=== PATIENT | male | born 1980 | race Two or more races ===

== ENCOUNTER 2019-08-21 11:42 | Inpatient (IN) | payer MEDICAID, OTHER ==
[~2019-08-21] VITALS: Ht 175.3 cm; Wt 75.3 kg
[2019-08-21] MEDS ORDERED: QUET100T PO (12:01)
[2019-08-21] MEDS ORDERED: ACETAMINOPHEN 500 MG TABLET PO ONE (12:15)
[2019-08-21] MEDS ORDERED: HALOPERIDOL 5 MG TABLET PO ONE (12:15)
[2019-08-21 12:23] LABS: BASOPHILS % (AUTO) 0.5 % (0.0-2.0); EOSINOPHILS % (AUTO) 1.3 % (1.0-6.0); HEMATOCRIT 43.8 % (41-53); HEMOGLOBIN 14.8 g/dL (13.5-17.5); LYMPHOCYTES # (AUTO) 0.9 K/uL (1.0-4.8); MEAN CORPUSCULAR HEMOGLOBIN 29.6 pg (26.0-34.0); MEAN CORPUSCULAR HGB CONC 33.9 G/dL (31.0-37.0); MEAN CORPUSCULAR VOLUME 87 fL (80-100); MONOCYTES # (AUTO) 0.3 K/uL (0.1-1.0); MONOCYTES % (AUTO) 4.9 % (2.0-9.0); NEUTROPHILS # (AUTO) 5.2 K/uL (1.8-7.7); NEUTROPHILS % (AUTO) 79.3 % (40.0-70.0); PLATELET COUNT (AUTO) 260 K/uL (150-450); RED BLOOD CELL COUNT(AUTO) 5.02 MIL/uL (4.50-5.90); RED CELL DISTRIBUTION WIDTH 13.3 % (11.5-14.5)
[2019-08-21 12:26] LABS: APPEARANCE,URINE CLEAR (CLEAR); BILIRUBIN,URINE NEGATIVE (NEGATIVE); GLUCOSE, URINE (UA) NEGATIVE (NEGATIVE); KETONES,URINE NEGATIVE (NEGATIVE); LEUKOCYTE ESTERASE ,URINE TRACE (NEGATIVE); NITRATE,URINE NEGATIVE (NEGATIVE); OCCULT BLOOD,URINE NEGATIVE (NEGATIVE); PH,URINE 7.5 (5.0-8.0); PROTEIN,URINE NEGATIVE (NEGATIVE); UROBILINOGEN,URINE 0.2 mg/dL (<=1.0)
[2019-08-21 12:31] LABS: ANION GAP 6 mmol/L (8-16); CALCIUM, TOTAL 8.6 mg/dL (8.8-10.5); CARBON DIOXIDE 30 mmol/L (22-29); CHLORIDE 104 mmol/L (98-107); CREATININE 0.98 mg/dL (0.60-1.30); GLOMERULAR FILTR. RATE CALC > 60 mL/min (>60); GLUCOSE,RANDOM 108 mg/dL (70-110); POTASSIUM 4.3 mmol/L (3.5-5.1); SODIUM SERUM 140 mmol/L (136-145); UREA NITROGEN, BLOOD 8 mg/dL (7-18)
[2019-08-21 12:31] LABS: AMPHET/METH SCREEN,URINE NEGATIVE (NEGATIVE); BARBITURATE SCREEN, URINE NEGATIVE (NEGATIVE); BENZODIAZEPINES SCREEN,URINE NEGATIVE (NEGATIVE); CANNABINOID SCREEN,URINE NEGATIVE (NEGATIVE); COCAINE SCREEN,URINE NEGATIVE (NEGATIVE); METHADONE SCREEN, URINE NEGATIVE (NEGATIVE); OPIATE SCREEN,URINE NEGATIVE (NEGATIVE)
[2019-08-21 12:32] LABS: PHENCYCLIDINE SCREEN,URINE NEGATIVE (NEGATIVE)
[2019-08-21 12:34] LABS: ALBUMIN 4.1 g/dL (3.4-5.0); LIPASE 119 U/L (73-393)
[2019-08-21 12:52] LABS: ALANINE AMINOTRANSFERASE 20 U/L (12-78); ALKALINE PHOSPHATASE 67 U/L (46-116); ASPARTATE AMINOTRANSFERASE 19 U/L (15-37); BILIRUBIN,TOTAL 0.7 mg/dL (0.1-1.0); TOTAL PROTEIN, SERUM 7.3 g/dL (6.4-8.2)
[2019-08-21 13:12] LABS: BACTERIA,URINE None Seen /HPF (None Seen); RBC,URINE 0-2 /HPF (0-2); SQUAMOUS EPITHELIAL CELL,UR Rare /LPF (None Seen); WBC,URINE 0-2 /HPF (0-5)
[2019-08-21] MEDS ORDERED: HALOPERIDOL 5 MG TABLET PO PRN (15:15)
[2019-08-21 19:06] VITALS: BP 106/71
[2019-08-21] MEDS ORDERED: CloNIDine HCL 0.1 MG TABLET PO PRN (20:30)
[2019-08-21] MEDS ORDERED: NICOTINE 14 MG/24 HOUR PATCH TD PRN (20:30)
[2019-08-21] MEDS ORDERED: ALBUTEROL SULFATE HFA 90 MCG/PUFF 8 GM INHALER IH PRN (20:30)
[2019-08-21] MEDS ORDERED: LOPERAMIDE HCL 2 MG CAPSULE PO PRN (20:30)
[2019-08-21] MEDS ORDERED: ONDANSETRON HCL 4 MG TABLET PO PRN (20:30)
[2019-08-21] MEDS ORDERED: PETROLATUM,WHITE 28 GM JELLY TP PRN (20:30)
[2019-08-21] MEDS ORDERED: GuaiFENesin/D-METHORPHAN [SUGAR-FREE] 200-20MG/10 ML SYRUP UDCUP PO PRN (20:30)
[2019-08-21] MEDS ORDERED: MAGNESIUM HYDROXIDE SUSPENSION 30 ML UDCUP PO PRN (20:30)
[2019-08-21] MEDS ORDERED: DOCUSATE SODIUM 100 MG CAPSULE PO PRN (20:30)
[2019-08-22 08:43] LABS: CHOL/HDL RATIO 3.4 (4.2-7.3)
[2019-08-22 09:04] VITALS: BP 112/66
[2019-08-22] MEDS: BuPROPion HCL XL 150 MG ER TABLET PO SCH (14:20)
[2019-08-22] MEDS: OLANZapine 5 MG TABLET PO SCH (17:06)
[2019-08-22 19:14] VITALS: BP 108/58
[2019-08-23 08:00] VITALS: BP 123/70
[2019-08-23] MEDS: OLANZapine 5 MG TABLET PO SCH ×2 (09:20→16:48)
[2019-08-23] MEDS: BuPROPion HCL XL 150 MG ER TABLET PO SCH (09:20)
[2019-08-23 10:35] VITALS: BP 123/70
[2019-08-23 16:49] VITALS: BP 127/60
[2019-08-23] MEDS: IBUPROFEN 400 MG TABLET PO PRN (16:49)
[2019-08-24] MEDS: LORazepam 2 MG TABLET PO PRN ×2 (02:05→16:26)
[2019-08-24 02:09] VITALS: BP 116/76
[2019-08-24 09:37] VITALS: BP 111/76
[2019-08-24] MEDS: BuPROPion HCL XL 150 MG ER TABLET PO SCH (10:26)
[2019-08-24] MEDS: OLANZapine 5 MG TABLET PO SCH (10:26)
[2019-08-24] MEDS: MAG HYDROX/AL HYDROX/SIMETH ES 30 ML SUSPENSION UDCUP PO PRN (12:21)
[2019-08-24 16:26] VITALS: BP 121/71
[2019-08-24] MEDS: OLANZapine 10 MG TABLET PO SCH (16:26)
[2019-08-24] MEDS: IBUPROFEN 400 MG TABLET PO PRN (16:26)
[2019-08-24] MEDS: ZOLPIDEM TARTRATE 10 MG TABLET PO PRN (21:19)
[2019-08-25 09:44] VITALS: BP 112/70
[2019-08-25] MEDS: OLANZapine 10 MG TABLET PO SCH ×2 (10:56→16:08)
[2019-08-25] MEDS: BuPROPion HCL XL 150 MG ER TABLET PO SCH (10:56)
[2019-08-25] MEDS: INFLUENZA VIRUS VACCINE QVS 2019-20 (3YR+)/PF 60 MCG/0.5 ML SYRINGE IM ONE ×2 (14:34→14:41)
[2019-08-25] MEDS: LORazepam 2 MG TABLET PO PRN (16:08)
[2019-08-25 18:20] VITALS: BP 122/64
[2019-08-26 01:39] VITALS: BP 123/73
[2019-08-26] MEDS: OLANZapine 10 MG TABLET PO SCH ×2 (09:06→16:30)
[2019-08-26] MEDS: BuPROPion HCL XL 150 MG ER TABLET PO SCH (09:06)
[2019-08-26 13:37] VITALS: BP 115/71
[2019-08-26 16:02] VITALS: BP 130/64
[2019-08-26] MEDS: LORazepam 2 MG TABLET PO PRN (16:31)
[2019-08-26] MEDS: MAG HYDROX/AL HYDROX/SIMETH ES 30 ML SUSPENSION UDCUP PO PRN (17:00)
[2019-08-27] MEDS: ZOLPIDEM TARTRATE 10 MG TABLET PO PRN (00:47)
[2019-08-27 00:49] VITALS: BP 108/58
[2019-08-27] MEDS: OLANZapine 10 MG TABLET PO SCH ×2 (08:20→16:10)
[2019-08-27] MEDS: BuPROPion HCL XL 150 MG ER TABLET PO SCH (08:20)
[2019-08-27 08:33] VITALS: BP 114/76
[2019-08-27] MEDS: MAG HYDROX/AL HYDROX/SIMETH ES 30 ML SUSPENSION UDCUP PO PRN (08:59)
[2019-08-27] MEDS ORDERED: BUPR-93 PO (14:05)
[2019-08-27] MEDS ORDERED: OLAN10TA3 PO (14:05)
[2019-08-27] MEDS: ACETAMINOPHEN 325 MG TABLET PO PRN (15:10)
[2019-08-27] MEDS: LORazepam 2 MG TABLET PO PRN (16:10)
[2019-08-27 16:49] VITALS: BP 113/64
[2019-08-28 04:46] VITALS: BP 111/72
[2019-08-28] MEDS: OLANZapine 10 MG TABLET PO SCH (08:07)
[2019-08-28] MEDS: BuPROPion HCL XL 150 MG ER TABLET PO SCH (08:07)
[2019-08-28 09:23] VITALS: BP 123/74
[2019-08-28] MEDS: ACETAMINOPHEN 325 MG TABLET PO PRN (12:49)
== END 2019-08-28 14:33 | disposition home or self-care (01) | DRG 750 ==
LOC: EMS 11:44 → 3EI 16:44
PROVIDERS: ADMIT Psychiatry & Neurology Psychiatry; ATTEND Psychiatry & Neurology Psychiatry
PROC: 3E0234Z Introduction of Serum, Toxoid and Vaccine into Muscle, Percutaneous Approach (ICD-10-PCS; principal; 2019-08-25)
DX: F20.9 Schizophrenia, unspecified (principal); R45.851 Suicidal ideations; N39.0 Urinary tract infection, site not specified; Z88.0 Allergy status to penicillin; F17.200 Nicotine dependence, unspecified, uncomplicated; Z23 Encounter for immunization
CPT/HCPCS: 87081; 90686; G0480